=== PATIENT | male | born 1970 | race Caucasian/White ===

== ENCOUNTER 2018-08-17 12:54 | Emergency (ER) | END 2018-08-17 16:15 | disposition home or self-care (01) ==

== ENCOUNTER 2018-08-20 09:40 | Emergency (ER) | payer MEDICAID ==
[~2018-08-20] VITALS: Wt 79.1 kg
[~2018-08-20 09:40] MED LIST: ONDA4TAB8 PO
--- NOTE | 2018-08-20 11:47 | ERD ---
ER Documentation Chief Complaint Chief Complaint CHEST PAIN X 1 WEEK HPI This is a 47-year-old male with a history of previous alcoholism who presents to the emergency room for evaluation of shakiness, and anxiety. The patient states that he has had these symptoms for the past 3 days. He states that he is not drinking any alcohol in 3 days. He states that he felt some chest pain last night at approximately 10 PM however he did not have any chest pain currently today. He states that his chest pain was in the center of his chest and he describes it as a sharp pain with no radiation not associated with shortness of breath nausea, or vomiting. He denies any relieving factors for his symptoms at this time. ROS All systems reviewed and are negative except as per history of present illness. Medications Home Meds Discontinued Scripts Ondansetron Hcl* (Zofran*) 4 Mg Tablet, 4 MG PO Q8H PRN for NAUSEA AND/OR VOMITING, #30 TAB Prov:NIKITA HORTON MD 08/17/18 Allergies Allergies: Coded Allergies: No Known Allergy (Unverified , 08/17/18) PMhx/Soc Medical and Surgical Hx: pt denies Medical Hx, pt denies Surgical Hx Hx Cardiac Disorders: Yes (DIABETES MELLITUS) Hx Alcohol Use: Yes (BEEN DRINKING ALCOHOL) Hx Substance Use: No Hx Tobacco Use: No Smoking Status: Never smoker Physical Exam Vitals Vital Signs Date Temp Pulse Resp B/P (MAP) Pulse Ox O2 O2 Flow FiO2 Time Delivery Rate 08/20/18 97 20 127/93 96 Room Air 11:31 (104) 08/20/18 Nasal 2 10:22 Cannula 08/20/18 97.4 101 18 166/91 99 09:44 (116) Physical Exam INITIAL VITAL SIGNS: Reviewed by me GENERAL: The patient is well developed and appropriate for usual state of health in no apparent distress HEENT: Pupils equal, round, and reactive to light. EOMI. There is no scleral icterus. NECK: C-spine is soft and supple, there is no meningismus. There is no cervical lymphadenopathy. LUNGS: Clear to auscultation bilaterally. There are no rales, wheezes or rhonchi. HEART: Tachycardic, no murmurs, clicks, rubs or gallops. ABDOMEN: Soft, non-tender, non-distended. There are bowel sounds in all four quadrants. No rebound or guarding. EXTREMITIES: There is no peripheral cyanosis or edema. No focal swelling or erythema. NEUROLOGICAL: The patient moves all four extremities with 5/5 strength. Cranial nerves II - XII are intact. Normal gait. Alert and oriented SKIN: There is no apparent rash or petechiae. HEME/LYMPHATIC: There is no evidence of excessive bruising or lymphedema. PSYCHIATRIC: The patient does to be anxious on my exam Result Diagram: 08/20/18 1017 08/20/18 1017 Results 24 hrs Laboratory Tests Test 08/20/18 10:17 White Blood Count 11.1 10^3/ul Red Blood Count 5.16 10^6/ul Hemoglobin 15.8 g/dl Hematocrit 45.4 % Mean Corpuscular Volume 88.0 fl Mean Corpuscular Hemoglobin 30.6 pg Mean Corpuscular Hemoglobin Concent 34.8 g/dl Red Cell Distribution Width 11.9 % Platelet Count 244 10^3/UL Mean Platelet Volume 8.9 fl Immature Granulocytes % 0.400 % Neutrophils % 81.8 % Lymphocytes % 12.2 % Monocytes % 4.8 % Eosinophils % 0.4 % Basophils % 0.4 % Nucleated Red Blood Cells % 0.0 /100WBC Immature Granulocytes # 0.040 10^3/ul Neutrophils # 9.1 10^3/ul Lymphocytes # 1.4 10^3/ul Monocytes # 0.5 10^3/ul Eosinophils # 0.0 10^3/ul Basophils # 0.1 10^3/ul Nucleated Red Blood Cells # 0.0 10^3/ul Sodium Level 138 mmol/L Potassium Level 3.9 mmol/L Chloride Level 92 mmol/L Carbon Dioxide Level 30 mmol/L Anion Gap 16 Blood Urea Nitrogen 8 mg/dl Creatinine 0.56 mg/dl Est Glomerular Filtrat Rate mL/min > 60 mL/min Glucose Level 173 mg/dl Calcium Level 9.2 mg/dl Total Bilirubin 0.8 mg/dl Direct Bilirubin 0.00 mg/dl Indirect Bilirubin 0.8 mg/dl Aspartate Amino Transf (AST/SGOT) 95 IU/L Alanine Aminotransferase (ALT/SGPT) 82 IU/L Alkaline Phosphatase 100 IU/L Troponin I < 0.012 ng/ml B-Type Natriuretic Peptide 37 PG/ML Total Protein 8.1 g/dl Albumin 4.6 g/dl Globulin 3.50 g/dl Albumin/Globulin Ratio 1.31 Ethyl Alcohol Level < 10.0 mg/dl Procedures/MDM Chest X-ray 1V Interpreted by me: Soft Tissue: No acute abnormalities Bones: No acute abnormalities Mediastinum/Cardiac Silhouette/Lungs: [No acute abnormalities] EKG: Rate/Rhythm: [Normal Sinus Rhythm with left axis deviation and right bundle branch block] QRS, ST, T-waves: [No changes consistent w/ acute ischemia] Impression: Normal sinus rhythm with left axis deviation and right bundle branch block This 47-year-old male presents to the emergency room for evaluation of anxiety and chest pain which occurred last night. The patient denies any current chest pain. His EKG does show some abnormalities with a right bundle branch block however there is no obvious ST elevation or signs of acute ischemia. His chest pain is currently not present, chest x-ray is clear, troponin is normal and alcohol level is undetectable. This patient could have minor withdrawal symptoms from alcohol. The patient does also appear to be anxious and does state that he has a history of anxiety. Given his negative troponin and EKG which shows no STEMI the patient will be appropriate for outpatient follow-up. I did stress the importance of following up with a specialist and getting a stress test as an outpatient. The patient verbalized understanding and he does feel comfortable with our plan of care for discharge with hydroxyzine for anxiety. The patient was advised that if he were to have any chest pain or any worsening symptoms he needs to return immediately to the emergency room for admission. The patient verbalized understanding and states he would like to go home. Differential diagnoses entertained was broad with potential high acuity. Patient has been evaluated for acute myocardial infarction, unstable angina, aortic dissection, pulmonary embolism, other intrathoracic and cardiac concerns. Ultimately the patient's evaluation is nondiagnostic. Based on the patient's lack of risk factors, as well as the patient's clinical, laboratory, and imaging data, the patient appears to be low risk for these high risk causes of chest pain. Departure Diagnosis: Primary Impression: Chest pain Additional Impression: Anxiety Condition: ANGELINA Blanchard DO Aug 20, 2018 11:47
[2018-08-20] MEDS ORDERED: HYDR-843 PO (11:48)
[2018-08-20 12:33] VITALS: BP 121/91; PULSE 96; RESP 18
== END 2018-08-20 12:33 | disposition home or self-care (01) ==
LOC: E/R 09:40
DX: F41.9 Anxiety disorder, unspecified (principal)
CPT/HCPCS: 36415; 71045; 80053; 80307; 83880; 84484; 85025; 93005